=== PATIENT | female | born 1970 | race Two or more races ===

== ENCOUNTER → 2017-09-27 | Emergency (ER) | payer OTHER ==
[~2017-09-27] VITALS: Ht 167.6 cm; Wt 95.3 kg
[~2017-09-27] MED LIST: KETO10TA2 PO; TAMS0.4C PO
== END | disposition home or self-care (01) ==
LOC: ER 20:51
DX: N20.1 Calculus of ureter (principal); R10.32 Left lower quadrant pain

== ENCOUNTER 2018-11-02 10:59 | Emergency (ER) | payer OTHER ==
[~2018-11-02] VITALS: Ht 167.6 cm; Wt 98.9 kg
== END 2018-11-02 14:54 | disposition home or self-care (01) ==
LOC: ER 10:59
DX: N20.0 Calculus of kidney (principal)

== ENCOUNTER 2019-01-24 04:00 | Emergency (ER) | payer OTHER ==
[~2019-01-24] VITALS: Ht 167.6 cm; Wt 97.5 kg
== END 2019-01-24 10:46 | disposition home or self-care (01) ==
LOC: ER 04:00
DX: N20.0 Calculus of kidney (principal); R10.31 Right lower quadrant pain

== ENCOUNTER 2024-09-15 11:30 | Emergency (ER) | payer OTHER ==
[~2024-09-15] VITALS: Ht 167.6 cm; Wt 102.1 kg
[2024-09-15] MEDS ORDERED: METFORMIN HCL500 M1 PO (12:42)
[2024-09-15] MEDS ORDERED: SIMVASTATIN20 MG PO (12:42)
[2024-09-15] MEDS ORDERED: LOSARTAN POTASS25 MG PO (12:42)
[2024-09-15 13:31] LABS: HEMATOCRIT 44.6 % (36.0-45.00); HEMOGLOBIN 14.5 g/dL (12.0-15.00); MEAN CELL VOLUME 78.7 fL (80.00-100.00); MEAN CORPUSCULAR HEMOGLOBIN 25.7 pg (27.00-32.0); MEAN CORPUSCULAR HGB CONC 32.6 g/dl (32.0-36.0); PLATELET COUNT 321 K/uL (150-450); RED BLOOD COUNT 5.67 M/uL (4.00-6.00)
[2024-09-15 14:16] LABS: PH,URINE 5.5 (5.0-8.0); URINE APPEARANCE Clear; URINE BILIRRUBIN Negative (NEGATIVE); URINE BLOOD Small; URINE COLOR Yellow; URINE GLUCOSE Negative (NEGATIVE); URINE KETONE Negative (NEGATIVE); URINE LEUKOCYTE Negative; URINE NITRATE Negative; URINE PROTEIN Negative (NEGATIVE); URINE UROBILINOGEN 0.2 E.U./dl
[2024-09-15 14:18] LABS: URINE BACTERIA 6895.5 uL (0.0-1933); URINE EPITHELIAL CELLS 66.6 uL (0.0-38.8); URINE RBC 21.9 uL (0.0-20.8); URINE WBC 45.4 uL (0.0-23.2)
[2024-09-15 14:32] LABS: URINE CAST 0.73 uL (0.0-1.40)
[2024-09-15 14:46] LABS: CALCIUM 9.4 mg/dL (8.5-10.1); CREATININE SERUM 0.62 mg/dL (0.55-1.02); GFR 101.08; POTASSIUM 4.54 mEq/L (3.5-5.1)
== END 2024-09-15 15:57 | disposition home or self-care (01) ==
LOC: ER 11:32
PROVIDERS: General Practice
DX: N20.0 Calculus of kidney (principal); Z87.442 Personal history of urinary calculi

== ENCOUNTER → 2025-03-02 | Emergency (ER) | payer OTHER ==
[~2025-03-02] VITALS: Ht 167.6 cm; Wt 106.1 kg
[~2025-03-02] MED LIST changes: +GABAPENTIN300 M2 PO; +LOSARTAN POTASS25 MG PO; +METFORMIN HCL500 M1 PO; +SIMVASTATIN20 MG PO
== END | disposition left against medical advice (07) ==
LOC: ER 02:14
DX: Z53.21 Procedure and treatment not carried out due to patient leaving prior to being seen by health care provider (principal)